=== PATIENT | female | born 1950 | race Caucasian/White ===

== ENCOUNTER 2017-08-31 11:46 | Emergency (ER) | payer OTHER ==
[2017-08-31 11:55] VITALS: BP 93/57; TEMP 97.1; BMI 19.5
--- NOTE | 2017-08-31 13:13 | ED.PDOC ---
General ED Provider: Dr. JOSE A CERVANTES Chief Complaint: Dizziness Stated Complaint: I am scared Dr. I am Afraid something is wrong with me. Have experienced dizziness intermittently for past two months. Additional dizziness today. Has been under stress with loss of 2 family members in last seveal months. Speculates various causes of why she does not feel well. Has several phobias -fear of falling, fear of bathing, fear something serioulsy wrong with me.Denies new systemic complaint Time Seen by Physician: 12:15 Mode of Arrival: Walk-In Information Source: Patient, Other (friend) Exam Limitations: No limitations Primary Care Provider: JOSE LOYA Nursing and Triage Documentation Reviewed and Agree: Yes Reviewed sepsis parameters & appropriate labs ordered?: Yes System Inflammatory Response Syndrome: Not Applicable Sepsis Protocol: For patient's 13 years and over: Temp is 96.8 and below OR 101 and greater Pulse >90 BPM Resp >20/minute Acutely Altered Mental Status Are patient's symptoms suggestive of a new infection, such as: -Pneumonia -Skin, Soft Tissue -Endocarditis -UTI -Bone, Joint Infection -Implantable Device -Acute Abdominal Infection -Wound Infection -Meningitis -Blood Stream Catheter Infection -Unknown System Inflammatory Response Syndrome: Not Applicable Review of Systems - Review Of Systems Constitutional: Reports: No symptoms Eyes: Reports: No symptoms Ears, Nose, Mouth, Throat: Reports: No symptoms Respiratory: Reports: No symptoms Cardiac: Reports: No symptoms GI: Reports: No symptoms : Reports: Frequency Musculoskeletal: Reports: No symptoms Skin: Reports: No symptoms Neurological: Reports: Anxiety (dizziness) Endocrine: Reports: No symptoms Hematologic/Lymphatic: Reports: No symptoms All Other Systems: Reviewed and Negative Past Medical History - Past Medical History Previously Healthy: Yes Endocrine: Reports: None Cardiovascular: Reports: None, Hypertension, Other (hyperlipidemai) Respiratory: Reports: None Hematological: Reports: None Gastrointestinal: Reports: None Genitourinary: Reports: None Neuro/Psych: Reports: None, Anxiety Musculoskeletal: Reports: None Cancer: Reports: None Last Menstrual Period: NA - Surgical History General Surgical History: Reports: None - Family History Family History: Reports: None - Social History Smoking Status: Current every day smoker Hx Substance Use: No Alcohol Screening: None Physical Exam - Physical Exam Appearance: Well-appearing, No pain distress, Well-nourished Eyes: DALE, EOMI, Conjunctiva clear ENT: Ears normal, Nose normal, Oropharynx normal Respiratory: Airway patent, Breath sounds clear, Breath sounds equal, Respirations nonlabored Cardiovascular: RRR, Pulses normal, No rub, No murmur GI/: Soft, Nontender, No masses, Bowel sounds normal, No Organomegaly Musculoskeletal: Normal strength, ROM intact, No edema, No calf tenderness Skin: Warm, Dry, Normal color Neurological: Sensation intact, Motor intact, Reflexes intact, Cranial nerves intact, Alert, Oriented Psychiatric: Affect appropriate, Mood appropriate Interpretation - Radiology Interpretation Radiology Interpretation By: Radiologist Exam Interpreted: CT Scan (head) Radiology Interpretation By: Radiologist Radiology Results: Negative Re-Evaluation - Re-Evaluation Time of Re-Evaluation: 15:30 Status: Improved Vital Signs Stable: Yes Appearance: NAD Lungs: Clear Skin: Warm and Dry Neuro: Alert and Oriented X3 CV: RRR Critical Care Note - Critical Care Note Total Time (mins): 30 Course - Course Hematology/Chemistry: 08/31/17 13:30 08/31/17 13:30 Orders, Labs, Meds: Lab Review 08/31/17 08/31/17 08/31/17 13:30 13:30 14:55 WBC 6.30 RBC 3.70 L Hgb 11.6 L Hct 33.5 L MCV 90.5 MCH 31.4 H MCHC 34.6 RDW Coeff of Oniel 13.1 Plt Count 231 Immature Gran % (Auto) 0.3 Neut % (Auto) 62.9 Lymph % (Auto) 24.9 [place] % (Auto) 10.2 H Eos % (Auto) 1.4 Baso % (Auto) 0.3 Immature Gran # (Auto) 0.0 Neut # (Auto) 4.0 Lymph # (Auto) 1.6 [place] # (Auto) 0.6 Eos # (Auto) 0.1 Baso # (Auto) 0.0 Sodium 137 Potassium 4.0 Chloride 103 Carbon Dioxide 25 Anion Gap 13.0 BUN 32 H Creatinine 0.88 Estimated GFR (MDRD) 64.00 BUN/Creatinine Ratio 36.36 Glucose 85 Calcium 9.7 Total Bilirubin 0.5 AST 20 ALT 17 Alkaline Phosphatase 53 Total Protein 6.5 Albumin 3.5 Globulin 3.0 Albumin/Globulin Ratio 1.17 Urine Color Yellow Urine Clarity Clear Urine pH 5.0 Ur Specific [place] 1.010 Urine Protein Negative Urine Glucose (UA) Negative Urine Ketones Negative Urine Blood Negative Urine Nitrite Positive Urine Bilirubin Negative Urine Urobilinogen 0.2 Ur Leukocyte Esterase Trace Urine Microscopic WBC 0-2 Ur Squamous Epith Cells 0-2 Urine Bacteria 2+ Orders Category Date Time Status EKG-(ED ONLY) Stat CARDIO 08/31/17 13:14 Completed IV ACCESS ONCE CARE 08/31/17 13:15 Active CBC W/ AUTO DIFF Stat LAB 08/31/17 13:30 Completed CMP [COMPREHENSIVE METABOLIC PANEL] Stat LAB 08/31/17 13:30 Completed UA [URINALYSIS C & S IF INDICATED] Stat LAB 08/31/17 14:55 Completed URINE CULTURE Stat LAB 08/31/17 14:[address] HEAD W/O CONTRAST Stat RADS 08/31/17 13:18 Completed Vital Signs: Temp Pulse Resp BP Pulse Ox 08/31/17 11:48 97.1 F L 99 H 16 93/57 L 95 Departure - Departure Time of Disposition: 15:50 Disposition: HOME SELF-CARE Discharge Problem: UTI (urinary tract infection), Weakness Instructions: Urinary Tract Infection in Women (ED), Weakness (ED) Condition: Good Pt referred to PMD for follow-up: Yes (PCP) IPMP verified?: No Allergies/Adverse Reactions: Allergies codeine Adverse Reaction (Verified 08/31/17 11:47) Penicillins Adverse Reaction (Verified 08/31/17 11:47) Home Medications: Ambulatory Orders Aspirin 325 mg PO DAILY 08/31/17 Clonazepam 1 mg PO BEDTIME 08/31/17 Denosumab [Prolia] 60 mg SQ DIRECTED 08/31/17 Hydrochlorothiazide 12.5 mg PO DAILY 08/31/17 Irbesartan 300 mg PO DAILY 08/31/17 Lovastatin 40 mg PO DAILY 08/31/17 Multivitamin [Multi-Vitamin Daily] 1 each PO DAILY 08/31/17 Nitrofurantoin Macrocrystal [Macrodantin] 100 mg PO BID #20 capsule 08/31/17 Disposition Discussed With: Patient Neurological Complaint Exam - Dizziness Complaint/Exam Onset: Gradual Symptoms Are: Still present Timing: Intermittent Episodes Lasting: Hours Initial Severity: Severe Current Severity: Mild Character: Reports: Head spinning, Room spinning Aggravating: Reports: Exertion, Position change, Change in head position Alleviating: Reports: Rest Associated Signs and Symptoms: Reports: Unsteady gait, Loss of balance Related History: Similar episode Cardiac Risk Factors: Reports: None, Hypertension CVA Risk Factors: Reports: None, Hypertension Related Surgical History: Reports: None JVD Present: No Carotid Bruit Present: No Rectal Heme Positive: No Nystagmus Present: No Gag Reflex Present: No Meningeal Signs Positive: No Focal Weakness: Present: None Focal Sensory Loss: Present: None Gait: Normal [id number]: Normal Findings Romberg Test Positive: No Heel to Toe Normal: Yes Differential Diagnoses: Anxiety, Labyrinthitis, Vasovagal reaction Additional Comments Additional Comments: Maintain good hydration. Good bladder / hygeine. Follow up PCP 1 week
--- NOTE | 2017-08-31 14:22 | CT ---
EXAM: CT head without contrast. HISTORY: Dizziness. COMPARISON: None available. TECHNIQUE: Multiple axial images of the brain were obtained from the skull base through the vertex w ithout intravenous contrast. Multiplanar reformats were provided. FINDINGS: There is no intracranial hemorrhage or extraaxial collection. The lazcano-white differentiat ion is maintained without evidence for acute large vascular territory infarction. The cortical sulci and basal cisterns are well visualized. There is no hydrocephalus, mass effect, or midline shift. The paranasal sinuses and mastoid air cells are clear. The calvarium is intact. IMPRESSION: No acute intracranial abnormality.
== END 2017-08-31 16:03 | disposition home or self-care (01) ==
LOC: ED 11:46
DX: N39.0 Urinary tract infection, site not specified (principal); R53.1 Weakness; R42 Dizziness and giddiness; E78.5 Hyperlipidemia, unspecified; I10 Essential (primary) hypertension; F17.210 Nicotine dependence, cigarettes, uncomplicated
CPT/HCPCS: 36415; 80053; 81001; 85025; 87086; 87186; 93005; 93010; 99283